=== PATIENT | female | born 2000 | race Hispanic/Latino ===

== ENCOUNTER → 2020-06-28 | Outpatient (REF) | payer OTHER | LOC: M LAB 18:23 | PROVIDERS: ATTEND Nurse Practitioner Family | DX: R30.0 Dysuria (principal) ==

== ENCOUNTER → 2020-08-18 | Outpatient (REF) | payer OTHER ==
[2020-08-18 15:50] LABS: HCG, SERUM QUALITATIVE POSITIVE (NEGATIVE)
[2020-08-18 15:59] LABS: HCG, SERUM QUANTITATIVE 17 MIU/ML
== END ==
LOC: M LAB REF 15:20
PROVIDERS: ATTEND Physician Assistant Medical
DX: Z32.00 Encounter for pregnancy test, result unknown (principal)